=== PATIENT | male | born 1965 | race Caucasian/White ===

== ENCOUNTER 2019-05-30 18:04 | Observation (INO) ==
[2019-05-30] MEDS ORDERED: Isovue-370 500 ML BOTTLE IVP ONE (18:16)
--- NOTE | 2019-05-30 18:19 | Emergency Department Note ---
Disposition Clinical Impression: Elevated troponin Chest pain Qualifiers: Chest pain type: unspecified Qualified Code(s): R07.9 - Chest pain, unspecified Disposition: Admitted As Inpatient Referrals: Chace Rees MD [Primary Care Provider] - Time of Disposition: 21:08 Chest Pain HPI - General Stated Complaint: CP Time Seen by Provider: 05/30/19 18:05 Source: patient Mode of arrival: private vehicle Limitations: no limitations Vital Signs Reviewed: Yes Nursing Notes Reviewed: Yes - History of Present Illness HPI Narrative: Patient is a 53-year-old male with a past medical history including hypertension, hyperlipidemia, coronary artery disease status post approximately 11 myocardial infarctions in 19 cardiac stent placements, on Dilantin, history of DVT and pulmonary embolism, presenting with a chief complaint of chest pain that started at 1 PM. The patient states he was sitting at rest and suddenly developed substernal chest pain that was sharp and radiated to the right side of his jaw that worsens when he takes a deep breath and with physical exertion. He also complains of some shortness of breath but no nausea or vomiting. He states he was also sweating. He states this is similar to a prior STEMI that he has had in the past. He was seen at [facility] at 3 PM and was noted to have an elevated blood pressure of 175 systolic. They told him to go to the emergency department. He went to [facility] and states he waited 45 minutes without any lab work or intervention done so he came here for further evaluation. The patient states the chest pain did subside after nitroglycerin. He states though the chest pain returned after walking into our emergency department. - Related Data Home Medications Medication Instructions Recorded Confirmed Unable To Obtain [Unable to Obtain] 05/30/19 05/30/19 Allergies Allergy/AdvReac Type Severity Reaction Status Date / Time Amoxicillin Allergy Difficulty Verified 05/30/19 19:16 Breathing All systems ED: reviewed and negative except as stated. Review of Systems: As Per HPI Constitutional: Denies: fever, chills Cardiovascular: Reports: chest pain. Denies: palpitations Respiratory: Reports: dyspnea. Denies: cough Gastrointestinal: Denies: abdominal pain, nausea, vomiting Musculoskeletal: Denies: back pain Neurological: Denies: headache, weakness Chest Pain PMH - Past Medical History Medical history: Reports: CHF, COPD, DVT, hyperlipidemia, hypertension, myocardial infarction, pulmonary embolus, syncope Psychiatric history: Reports: no psych history - Social History Smoking Status: Current every day smoker Alcohol use: Reports: none Drug use: Reports: none Physical Exam - General Limitations: no limitations General appearance: alert, in no apparent distress - Head Head exam: atraumatic, normocephalic - Eye Eye exam: Present: normal appearance, EOMI - ENT ENT exam: normal exam, normal oropharynx - Neck Neck exam: Present: normal inspection, trachea midline - Chest Chest inspection: Present: normal inspection, symmetric chest wall rise - Respiratory Respiratory exam: Present: normal lung sounds bilaterally. Absent: respiratory distress, wheezes - Cardiovascular Cardiovascular exam: Present: regular rate, normal rhythm, normal heart sounds, other (Bilateral radial and dorsalis pedis pulses are equal and palpable) - Abdominal Exam Abdominal exam: Present: soft, Non-Tender. Absent: distention, guarding - Extremities Exam Extremities exam: Present: normal capillary refill. Absent: pedal edema, calf tenderness - Neurological Exam Neurological exam: Present: alert, oriented X3 - Psychiatric Psychiatric exam: Present: normal affect, normal mood - Skin Skin exam: Present: warm, dry, intact, normal color Course Vital Signs Temperature 98.6 F 05/30/19 18:15 Pulse Rate 478 05/30/19 18:15 Respiratory Rate 18 05/30/19 18:15 Blood Pressure 116/85 05/30/19 18:15 O2 Sat by Pulse Oximetry 97 05/30/19 18:15 Temperature 98.2 F 05/30/19 20:25 Pulse Rate 86 05/30/19 20:25 Respiratory Rate 20 05/30/19 20:25 Blood Pressure 123/78 05/30/19 20:25 O2 Sat by Pulse Oximetry 98 05/30/19 20:25 Oxygen Delivery Oxygen Delivery Room Air Chest Pain - MDM Narrative Medical decision making narrative: Patient has significant cardiac history including multiple stent placements on Brilinta, he also has history of DVT and pulmonary embolism. We will obtain cardiac workup. Initial EKG shows no acute ischemic changes and is unchanged from prior. We will also obtain CTA chest to evaluate for pulmonary embolism. Patient will require admission. He does state he has taken 7 nitroglycerin today. Aspirin and morphine will be given. 19:44 Patient was reevaluated. The vitals remain stable and the patient states he is chest pain free after having morphine. CTA pending at this time. He has an elevated troponin of 0.04. 20:50 CTA shows no pulmonary embolism. Patient states his chest pain is slowly coming back and feels tight. EKG will be repeated. Hospitalist for admission. 21:05 Repeat EKG was obtained and is unchanged from prior. Discussed with admitting hospitalist who accepts admission. - Medical Records Medical records reviewed: Yes I reviewed the patient's medical records. - Lab Data Lab results reviewed: Yes I reviewed the patient's lab results. Result diagrams: 05/30/19 18:24 05/30/19 18:24 Lab Results 05/30/19 05/30/19 05/30/19 Range/Units 18:24 18:24 18:24 WBC 10.0 (4.3-11.1) K/mcL RBC 5.51 H (4.19-5.50) M/mcL Hgb 16.2 (12.9-16.9) g/dL Hct 48.8 (37.5-50.1) % MCV 88.6 (83.0-100.0) fL MCH 29.4 (28.0-33.3) pg MCHC 33.2 (31.6-35.5) g/dL RDW 14.3 (11.5-14.5) % Plt Count 320 (140-400) K/mcL MPV 9.2 L (9.4-12.4) fL Immature Gran % 0.2 (0-4) % Seg Neutrophils % 67.0 % Lymphocytes % 24.4 % Monocytes % 7.6 % Eosinophils % 0.1 % Basophils % 0.7 % Neutrophils # 6.7 (1.6-8.9) K/mcL Lymphocytes # 2.5 (0.6-4.6) K/mcL Monocytes # 0.8 (0.0-1.3) K/mcL Eosinophils # 0.0 (0.0-0.6) K/mcL Basophils # 0.1 (0.0-0.2) K/mcL PT 11.7 (9.4-12.1) Seconds INR 1.0 APTT 33.4 (26.0-36.0) Seconds Sodium (136-145) mEq/L Potassium (3.5-5.1) mEq/L Chloride (98-107) mEq/L Carbon Dioxide (23-29) mEq/L BUN (6-20) mg/dL Creatinine (0.70-1.30) mg/dL Est GFR ( Amer) (> 60) Est GFR (Non-Af Amer) (> 60) BUN/Creatinine Ratio (6-26) Glucose (70-105) mg/dL Calculated Osmolality (280-300) Calcium (8.6-10.3) mg/dL Troponin I (< 0.04) ng/mL B-Natriuretic Peptide 30 (Less than 100) pg/mL 05/30/19 Range/Units 18:24 WBC (4.3-11.1) K/mcL RBC (4.19-5.50) M/mcL Hgb (12.9-16.9) g/dL Hct (37.5-50.1) % MCV (83.0-100.0) fL MCH (28.0-33.3) pg MCHC (31.6-35.5) g/dL RDW (11.5-14.5) % Plt Count (140-400) K/mcL MPV (9.4-12.4) fL Immature Gran % (0-4) % Seg Neutrophils % % Lymphocytes % % Monocytes % % Eosinophils % % Basophils % % Neutrophils # (1.6-8.9) K/mcL Lymphocytes # (0.6-4.6) K/mcL Monocytes # (0.0-1.3) K/mcL Eosinophils # (0.0-0.6) K/mcL Basophils # (0.0-0.2) K/mcL PT (9.4-12.1) Seconds INR APTT (26.0-36.0) Seconds Sodium 139 (136-145) mEq/L Potassium 3.7 (3.5-5.1) mEq/L Chloride 104 (98-107) mEq/L Carbon Dioxide 26 (23-29) mEq/L BUN 6 (6-20) mg/dL Creatinine 1.04 (0.70-1.30) mg/dL Est GFR ( Amer) > 60 (> 60) Est GFR (Non-Af Amer) > 60 (> 60) BUN/Creatinine Ratio 6 (6-26) Glucose 109 H (70-105) mg/dL Calculated Osmolality 286 (280-300) Calcium 9.8 (8.6-10.3) mg/dL Troponin I 0.04 H* (< 0.04) ng/mL B-Natriuretic Peptide (Less than 100) pg/mL - Radiology Data Radiology results reviewed: Yes I reviewed the patient's radiology results. Chest X-Ray 05/30/19 18:06 IMPRESSION: 1. No radiographic finding to account for patient's chest pain. D/ / Charles Hernandez MD / Charles Hernandez MD Interpreting Provider: Charles Hernandez MD Chest X-Ray 05/30/19 18:06 IMPRESSION: 1. No radiographic finding to account for patient's chest pain. D/ / Charles Hernandez MD / Charles Hernandez MD Interpreting Provider: Charles Hernandez MD Chest CTA 05/30/19 18:16 IMPRESSION: No gross findings of pulmonary embolism. 4 mm right middle lobe noncalcified pulmonary nodule, for which follow-up recommendations are as below. Emphysema. RECOMMENDATIONS: Fleischner Society guidelines for follow-up and management of incidentally detected pulmonary nodules: Single Solid Nodule: Nodule size less than 6 mm In a low-risk patient, no routine follow-up. In a high-risk patient, optional CT at 12 months. Nodule size equals 6-8 mm In a low-risk patient, CT at 6-12 months, then consider CT at 18-24 months. In a high-risk patient, CT at 6-12 months, then CT at 18-24 months. Nodule size greater than 8 mm In a low-risk patient, consider CT at 3 months, PET/CT, or tissue sampling. In a high-risk patient, consider CT at 3 months, PET/CT, or tissue sampling. Multiple Solid Nodules: Nodule size less than 6 mm In a low-risk patient, no routine follow-up. In a high-risk patient, optional CT at 12 months. Nodule size equals 6-8 mm In a low-risk patient, CT at 3-6 months, then consider CT at 18-24 months. In a high-risk patient, CT at 3-6 months, then CT at 18-24 months. Nodule size greater than 8 mm In a low-risk patient, CT at 3-6 months, then consider CT at 18-24 months. In a high-risk patient, CT at 3-6 months, then CT at 18-24 months. - Low risk patients include individuals with minimal or absent history of smoking and other known risk factors. - High risk patients include individuals with a history or smoking or known risk factors. Radiology 2017 http://pubs.rsna.org/doi/full/10.1148/radiol.[email or web address] D/ / Rodriguez Sahu MD / Rodriguez Sahu MD Interpreting Provider: Rodriguez Sahu MD - EKG Data EKG attestation: Yes I reviewed and interpreted this EKG. EKG results narrative: EKG obtained at 1809 shows sinus rhythm with heart rate 78, LA interval 151, QRS duration 95, QTC 417, no ST elevation, no ST depression, T-wave flattening in aVL, compared to old EKG on 02/16/2019 which is new flattened T waves in aVL. Repeat EKG was obtained at 2053 shows sinus rhythm with heart rate 82, P LA interval 156, QRS duration 95, QTC 462, no ST elevation, no ST depression, no changes from prior EKG at 1810. Attestation Statement - Attestation Attestation: Andrés Starr D.O., examined this patient and my medical decision-making was reviewed with the Resident Physician. I agree with the documented findings, disposition and treatment plan as described except to the extent set forth below.
[2019-05-30] MEDS ORDERED: Nitroglycerin 0.4 MG TAB.SUBL SL PRN ×2 (18:23→21:47)
[2019-05-30 18:44] LABS: Basophils # 0.1 K/mcL (0.0-0.2); Basophils % 0.7 %; Eosinophils % 0.1 %; Hematocrit 48.8 % (37.5-50.1); Hemoglobin 16.2 g/dL (12.9-16.9); Immature Granulocytes % 0.2 % (0-4); Lymphocytes # 2.5 K/mcL (0.6-4.6); Lymphocytes % 24.4 %; Mean Corpuscular HGB Conc 33.2 g/dL (31.6-35.5); Mean Corpuscular Hemoglobin 29.4 pg (28.0-33.3); Mean Corpuscular Volume 88.6 fL (83.0-100.0); Mean Platelet Volume 9.2 fL (9.4-12.4); Monocytes # 0.8 K/mcL (0.0-1.3); Monocytes % 7.6 %; Neutrophils # 6.7 K/mcL (1.6-8.9); Platelet Count 320 K/mcL (140-400); Red Blood Count 5.51 M/mcL (4.19-5.50); Red Cell Distribution Width 14.3 % (11.5-14.5)
[2019-05-30] MEDS ORDERED: Morphine Sulfate 2 MG/ML SYRINGE IVP ONE (18:45)
[2019-05-30 18:50] LABS: Prothrombin Time 11.7 Seconds (9.4-12.1)
[2019-05-30 18:53] LABS: Activated Partial Thrombo Time 33.4 Seconds (26.0-36.0)
[2019-05-30 19:02] LABS: BUN/Creatinine Ratio 6 (6-26); Blood Urea Nitrogen 6 mg/dL (6-20); Calcium 9.8 mg/dL (8.6-10.3); Carbon Dioxide 26 mEq/L (23-29); Chloride 104 mEq/L (98-107); Glucose 109 mg/dL (70-105); Osmolality,Calculated 286 (280-300); Potassium 3.7 mEq/L (3.5-5.1); Sodium 139 mEq/L (136-145); eGFR For African Americans > 60 (> 60); eGFR For Non-African Americans > 60 (> 60)
[2019-05-30 19:13] LABS: Troponin I 0.04 ng/mL (< 0.04)
--- NOTE | 2019-05-30 19:30 | Emergency Department Note ---
Disposition Clinical Impression: Elevated troponin, Pulmonary nodule Chest pain Qualifiers: Chest pain type: unspecified Qualified Code(s): R07.9 - Chest pain, unspecified Disposition: Admitted As Inpatient Referrals: Chace Rees MD [Primary Care Provider] - Time of Disposition: 21:23 General Adult HPI - General Chief complaint: ED Chest Pain Stated complaint: CP Time Seen by Provider: 05/30/19 18:05 Source: patient Mode of arrival: private vehicle Limitations: no limitations - History of Present Illness Pain Scale: 9 - Related Data Home Medications Medication Instructions Recorded Confirmed Unable To Obtain [Unable to Obtain] 05/30/19 05/30/19 Allergies Allergy/AdvReac Type Severity Reaction Status Date / Time Amoxicillin Allergy Difficulty Verified 05/30/19 19:16 Breathing Constitutional: Denies: fever, chills Cardiovascular: Reports: chest pain. Denies: palpitations Respiratory: Reports: dyspnea. Denies: cough Gastrointestinal: Denies: abdominal pain, nausea, vomiting Musculoskeletal: Denies: back pain Neurological: Denies: headache, weakness Past Medical History - Past Medical History Medical history: Reports: CHF, COPD, DVT, hyperlipidemia, hypertension, myocardial infarction, pulmonary embolus, syncope Psychiatric history: Reports: no psych history - Social History Smoking Status: Current every day smoker Alcohol use: Reports: none Drug use: Reports: none Physical Exam - General Limitations: no limitations General appearance: alert, in no apparent distress Course Vital Signs Temperature 98.6 F 05/30/19 18:15 Pulse Rate 478 05/30/19 18:15 Respiratory Rate 18 05/30/19 18:15 Blood Pressure 116/85 05/30/19 18:15 O2 Sat by Pulse Oximetry 97 05/30/19 18:15 Temperature 98.2 F 05/30/19 20:25 Pulse Rate 86 05/30/19 20:25 Respiratory Rate 20 05/30/19 20:25 Blood Pressure 123/78 05/30/19 20:25 O2 Sat by Pulse Oximetry 98 05/30/19 20:25 Oxygen Delivery Oxygen Delivery Room Air Medical Decision Making - Lab Data Lab results reviewed: Yes I reviewed the patient's lab results. Result diagrams: 05/30/19 18:24 05/30/19 18:24 Lab Results 05/30/19 05/30/19 05/30/19 Range/Units 18:24 18:24 18:24 WBC 10.0 (4.3-11.1) K/mcL RBC 5.51 H (4.19-5.50) M/mcL Hgb 16.2 (12.9-16.9) g/dL Hct 48.8 (37.5-50.1) % MCV 88.6 (83.0-100.0) fL MCH 29.4 (28.0-33.3) pg MCHC 33.2 (31.6-35.5) g/dL RDW 14.3 (11.5-14.5) % Plt Count 320 (140-400) K/mcL MPV 9.2 L (9.4-12.4) fL Immature Gran % 0.2 (0-4) % Seg Neutrophils % 67.0 % Lymphocytes % 24.4 % Monocytes % 7.6 % Eosinophils % 0.1 % Basophils % 0.7 % Neutrophils # 6.7 (1.6-8.9) K/mcL Lymphocytes # 2.5 (0.6-4.6) K/mcL Monocytes # 0.8 (0.0-1.3) K/mcL Eosinophils # 0.0 (0.0-0.6) K/mcL Basophils # 0.1 (0.0-0.2) K/mcL PT 11.7 (9.4-12.1) Seconds INR 1.0 APTT 33.4 (26.0-36.0) Seconds Sodium (136-145) mEq/L Potassium (3.5-5.1) mEq/L Chloride (98-107) mEq/L Carbon Dioxide (23-29) mEq/L BUN (6-20) mg/dL Creatinine (0.70-1.30) mg/dL Est GFR ( Amer) (> 60) Est GFR (Non-Af Amer) (> 60) BUN/Creatinine Ratio (6-26) Glucose (70-105) mg/dL Calculated Osmolality (280-300) Calcium (8.6-10.3) mg/dL Troponin I (< 0.04) ng/mL B-Natriuretic Peptide 30 (Less than 100) pg/mL 05/30/19 Range/Units 18:24 WBC (4.3-11.1) K/mcL RBC (4.19-5.50) M/mcL Hgb (12.9-16.9) g/dL Hct (37.5-50.1) % MCV (83.0-100.0) fL MCH (28.0-33.3) pg MCHC (31.6-35.5) g/dL RDW (11.5-14.5) % Plt Count (140-400) K/mcL MPV (9.4-12.4) fL Immature Gran % (0-4) % Seg Neutrophils % % Lymphocytes % % Monocytes % % Eosinophils % % Basophils % % Neutrophils # (1.6-8.9) K/mcL Lymphocytes # (0.6-4.6) K/mcL Monocytes # (0.0-1.3) K/mcL Eosinophils # (0.0-0.6) K/mcL Basophils # (0.0-0.2) K/mcL PT (9.4-12.1) Seconds INR APTT (26.0-36.0) Seconds Sodium 139 (136-145) mEq/L Potassium 3.7 (3.5-5.1) mEq/L Chloride 104 (98-107) mEq/L Carbon Dioxide 26 (23-29) mEq/L BUN 6 (6-20) mg/dL Creatinine 1.04 (0.70-1.30) mg/dL Est GFR ( Amer) > 60 (> 60) Est GFR (Non-Af Amer) > 60 (> 60) BUN/Creatinine Ratio 6 (6-26) Glucose 109 H (70-105) mg/dL Calculated Osmolality 286 (280-300) Calcium 9.8 (8.6-10.3) mg/dL Troponin I 0.04 H* (< 0.04) ng/mL B-Natriuretic Peptide (Less than 100) pg/mL - Radiology Data Radiology results reviewed: Yes I reviewed the patient's radiology results. Chest X-Ray 05/30/19 18:06 IMPRESSION: 1. No radiographic finding to account for patient's chest pain. D/ / Charles Hernandez MD / Charles Hernandez MD Interpreting Provider: Charles Hernandez MD Chest CTA 05/30/19 18:16 IMPRESSION: No gross findings of pulmonary embolism. 4 mm right middle lobe noncalcified pulmonary nodule, for which follow-up recommendations are as below. Emphysema. RECOMMENDATIONS: Fleischner Society guidelines for follow-up and management of incidentally detected pulmonary nodules: Single Solid Nodule: Nodule size less than 6 mm In a low-risk patient, no routine follow-up. In a high-risk patient, optional CT at 12 months. Nodule size equals 6-8 mm In a low-risk patient, CT at 6-12 months, then consider CT at 18-24 months. In a high-risk patient, CT at 6-12 months, then CT at 18-24 months. Nodule size greater than 8 mm In a low-risk patient, consider CT at 3 months, PET/CT, or tissue sampling. In a high-risk patient, consider CT at 3 months, PET/CT, or tissue sampling. Multiple Solid Nodules: Nodule size less than 6 mm In a low-risk patient, no routine follow-up. In a high-risk patient, optional CT at 12 months. Nodule size equals 6-8 mm In a low-risk patient, CT at 3-6 months, then consider CT at 18-24 months. In a high-risk patient, CT at 3-6 months, then CT at 18-24 months. Nodule size greater than 8 mm In a low-risk patient, CT at 3-6 months, then consider CT at 18-24 months. In a high-risk patient, CT at 3-6 months, then CT at 18-24 months. - Low risk patients include individuals with minimal or absent history of smoking and other known risk factors. - High risk patients include individuals with a history or smoking or known risk factors. Radiology 2017 http://pubs.rsna.org/doi/full/10.1148/radiol.[email or web address] D/ / Rodriguez Sahu MD / Rodriguez Sahu MD Interpreting Provider: Rodriguez Sahu MD Attestation Statement - Attestation Attestation: Andrés Starr D.O., examined this patient and my medical decision-making was reviewed with the Resident Physician. I agree with the documented findings, di sposition and treatment plan as described except to the extent set forth below. This is a 53-year-old male with a history of CAD with numerous stents, prior PE on aspirin and Brilinta currently who presents with a complaint of chest pain. Pain began this afternoon at rest. [place] diaphoretic and short of breath with it. He tells me he took 7 nitroglycerin in total by the time of arrival. Reports his blood pressure is always on the lower side. No recent illnesses. No other complaints. General: Alert, no acute distress HENT: Normocephalic, Atraumatic Neck: No JVD Cardiovascular: Regular rate and rhythm. No appreciable murmurs Respiratory: Lungs CTAB. No wheezing/rhonchi Abdominal: Soft, non tender. No peritoneal findings Extremities: No peripheral edema Neuro: Alert, Mentating appropriately, No focal deficits Skin: Warm, Dry Plan: Significant coronary artery disease history. States he last had a left heart catheterization in October with a stent placed then. Plan for EKG, chest x-ray and labs and troponin. Anticipate admission. ED Procedure Note: EKG interpretation - I agree with the resident physician's documentation and interpretation of the patient's EKG. Sinus rhythm with rate of 70 beats or minute. Left axis deviation. Normal intervals. No gross ST elevations or depressions. No acute ischemic findings. Imaging labs reviewed. CT negative for PE. He does have an elevated troponin of 0.04. Repeat EKG was obtained given recurrence of his pain without any new changes. Case was discussed with the hospitalist who accepts for admission.
[2019-05-30] MEDS: Aspirin 325 MG TABLET PO ONE (21:27)
[2019-05-30] MEDS ORDERED: Naloxone 0.4 MG/ML INJ IVP PRN (21:42)
[2019-05-30] MEDS ORDERED: Ondansetron 4 MG/2 ML VIAL IVP PRN (21:47)
[2019-05-30] MEDS: *HR* Heparin 5,000 UNIT/ML VIAL SQ SCH (22:08)
[2019-05-31 01:07] LABS: Hematocrit 47.2 % (37.5-50.1); Hemoglobin 15.5 g/dL (12.9-16.9); Mean Corpuscular HGB Conc 32.8 g/dL (31.6-35.5); Mean Corpuscular Hemoglobin 29.2 pg (28.0-33.3); Mean Corpuscular Volume 89.1 fL (83.0-100.0); Mean Platelet Volume 9.4 fL (9.4-12.4); Platelet Count 285 K/mcL (140-400); Red Cell Distribution Width 14.4 % (11.5-14.5)
[2019-05-31 01:26] LABS: BUN/Creatinine Ratio 6 (6-26); Blood Urea Nitrogen 6 mg/dL (6-20); Calcium 9.1 mg/dL (8.6-10.3); Carbon Dioxide 25 mEq/L (23-29); Chloride 106 mEq/L (98-107); Chol/HDL Ratio 3.8 (0-4.9); Cholesterol 121 mg/dL (< 200); Glucose 116 mg/dL (70-105); HDL Cholesterol 32 mg/dL (40-59); LDL Cholesterol,Calculated 65 mg/dL (0-99); Magnesium 1.9 mg/dL (1.6-2.6); Osmolality,Calculated 285 (280-300); Potassium 3.7 mEq/L (3.5-5.1); Sodium 138 mEq/L (136-145); Triglycerides 121 mg/dL (< 150); eGFR For African Americans > 60 (> 60); eGFR For Non-African Americans > 60 (> 60)
[2019-05-31] MEDS: Morphine Sulfate 2 MG/ML SYRINGE IVP PRN ×3 (03:12→12:36)
--- NOTE | 2019-05-31 04:54 | Internal Med History&Physical ---
Date of Encounter: 05/31/19 Time of Encounter: 04:54 Internal Medicine - H&P: HPI Chief complaint: Chest pain History of present illness: Mr. Verduzco is a 53 year old male with an extensive past medical history of coronary artery disease status post reported multiple MIs, 19 cardiac stents, CABG in addition to hypertension, hyperlipidemia history of DVT and PE, CHF and COPD who presented to the ED with chief complaint of chest pain. Patient reports that around 1 PM this afternoon while the patient was seated he began to have sudden onset substernal chest pain described as tightness that was nonradiating and reported to be aggravated with exertion and partially relieved with rest. Symptoms were associated with profuse sweating, nausea and chills and some shortness of breath. Patient states that symptoms were similar to previous [place]. Patient initially went to his mental health practitioner for which he had a previous appointment and was found to have an elevated blood pressure with a systolic in the 170s. Patient was subsequently referred to the ED. Carlo hardy reports to have taken sublingual nitroglycerin which did not help. He was given an additional sublingual nitroglycerin here in the ED which again did not improve his symptoms. Patient was given 4 mg of morphine after which his chest pain was noted to improve. Patient otherwise reports no recent illness, fever, chills, cough, abdominal pain, lower extremity edema, constipation or diarrhea. Patient admits to smoking approximately 4-5 cigarettes a day. Otherwise reports a [id number] smoking history Denies any alcohol or drug use. Family history noncontributory. Patient reports the last stress test in September of this year which she states was abnormal. On arrival, patient's vitals were stable. Initial troponin was mildly elevated at 0.04. Remainder of laboratory workup was unremarkable. EKG was obtained which showed sinus rhythm in the absence of any ST or T-wave changes concerning for ischemia. A CTA was obtained which was negative for PE. On my assessment patient was still complaining of 5 out of 10 chest pain and requesting morphine. Past Med Surg Social Fam HX - Past Medical History Medical history: asthma, CHF, COPD, DVT, hyperlipidemia, hypertension, myocardial infarction, pulmonary embolus, syncope Additional medical history: neuropathy, emphysema, colon polyps Psychiatric history: anxiety, depression - Past Surgical History Additional surgical history: triple bypass - Social History Smoking Status: Current every day smoker Alcohol use: none Drug use: none Internal Medicine - H&P: Meds Albuterol Sulfate [Ventolin Hfa] 2 puff IH Q4H PRN 05/30/19 [History] Amitriptyline [Elavil] 25 mg PO HS 05/30/19 [History] Aspirin [Lo-Dose Aspirin EC] 81 mg PO DAILY 05/30/19 [History] Diclofenac Sodium [Diclofono] 1 appl TP BID PRN 05/30/19 [History] Evolocumab [Repatha Sureclick] 140 mg SQ Q2W 05/30/19 [History] FLUoxetine HCl [Prozac] 60 mg PO DAILY 05/30/19 [History] Famotidine [Pepcid] 20 mg PO BID 05/30/19 [History] Fluticasone Propionate Nasal [Flonase] 1 spr NS DAILY PRN 05/30/19 [History] Folic Acid 1 mg PO DAILY 05/30/19 [History] Furosemide [Lasix] 40 mg PO DAILY PRN 05/30/19 [History] Gabapentin [Neurontin] 400 mg PO TID 05/30/19 [History] Ipratropium/Albuterol Neb [Duoneb] 3 ml IH Q6HR PRN 05/30/19 [History] Isosorbide DInitrate [Isosorbide Dinitrate] 30 mg PO BID 05/30/19 [History] Lisinopril [Zestril] 5 mg PO DAILY 05/30/19 [History] Metoprolol Succinate [Toprol Xl] 25 mg PO DAILY 05/30/19 [History] Nitroglycerin [Nitrostat] 0.4 mg SL Q5M PRN MDD 3 tabs/15mins 05/30/19 [History] Ondansetron ODT [Zofran ODT] 4 mg PO TID PRN 05/30/19 [History] Rosuvastatin [Crestor] 40 mg PO HS 05/30/19 [History] Ticagrelor [Brilinta] 90 mg PO BID 05/30/19 [History] Tiotropium [place] [Spiriva Respimat] 2 spr IH DAILY 05/30/19 [History] clonazePAM [Clonazepam] 0.5 tab PO BID 05/30/19 [History] hydrOXYzine HCl [Hydroxyzine HCl] 50 mg PO BID PRN 05/30/19 [History] Nicotine Patch [Nicoderm] 14 mg TD DAILY #30 patch.td24 05/31/19 [Rx] Ranolazine [Ranexa] 1,000 mg PO BID #60 tab.er.12h 05/31/19 [Rx] Allergy/AdvReac Type Severity Reaction Status Date / Time Amoxicillin Allergy Difficulty Verified 05/30/19 22:35 Breathing All Systems PM: A 10-system review of systems was performed and is negative for pertinent findings except as documented above in the HPI. - Constitutional Constitutional: no chills, no fever(s), no night sweats - EENT Eyes: no change in vision, no discharge, no pain, no photophobia Ears: no ear discharge, no ear pain, no tinnitus Nose, mouth and throat: no dysphagia, no nasal discharge, no neck pain, no sore throat - Cardiovascular Cardiovascular ROS IM: no chest pain, no diaphoresis, no dyspnea, no lightheadedness, no palpitations, no syncope - Respiratory Respiratory: no cough, no dyspnea, no wheezing, no excessive phlegm production - Gastrointestinal Gastrointestinal: no abdominal pain, no diarrhea, no hematemesis, no hematochezia, no melena, no nausea, no vomiting - Musculoskeletal Musculoskeletal ROS IM: no numbness, no tingling - Integumentary Integumentary IM: no rash, no unusual bruising - Neurological Neurological ROS: no confusion, no convulsions, no focal weakness, no numbness, no tingling, no tremor(s) - Hematologic/Lymphatic Hematologic/Lymphatic: no easy bruising - Constitutional Vitals: Temp Pulse Resp BP Pulse Ox 97.6 F 56 16 117/70 97 05/31/19 03:59 05/31/19 03:59 05/31/19 03:59 05/31/19 03:59 05/31/19 03:59 Exam: General: Alert and oriented Skin:Normal color, no rash, no lesions. HEENT:EOM, pupils equal, round and reactive. Cardiovascular:Normal S1 & S2, no rubs, murmurs or gallops. No JVD. Pulse regular. Lungs:Normal breath sounds, no wheezes or crackles. Abdomen:Soft, non-tender, no rigidity. Extremities:No deformity, no edema or tenderness, no joint swelling or clubbing. Neurological:Normal cognition and motor skills. Pulses:Carotid and radial pulses normal +2. Rest of the physical exam is non contributory Internal Med - H&P Results - Labs CBC & Chem 7: 05/31/19 06:27 05/31/19 06:27 Labs: Short CBC 05/30/19 05/31/19 Range/Units 18:24 00:26 WBC 10.0 12.0 H (4.3-11.1) K/mcL Hgb 16.2 15.5 (12.9-16.9) g/dL Hct 48.8 47.2 (37.5-50.1) % Plt Count 320 285 (140-400) K/mcL Neutrophils # 6.7 (1.6-8.9) K/mcL BMP 05/30/19 05/31/19 18:24 00:26 Sodium 139 138 Potassium 3.7 3.7 Chloride 104 106 Carbon Dioxide 26 25 BUN 6 6 Creatinine 1.04 0.99 Glucose 109 H 116 H Calcium 9.8 9.1 Cardiac Enzymes 05/30/19 05/31/19 Range/Units 18:24 00:26 Troponin I 0.04 H* 0.03 (< 0.04) ng/mL - Impressions ITS Impressions Chest X-Ray 05/30/19 18:06 IMPRESSION: 1. No radiographic finding to account for patient's chest pain. D/ / Charles Hernandez MD / Charles Hernandez MD Interpreting Provider: Charles Hernandez MD Chest CTA 05/30/19 18:16 IMPRESSION: No gross findings of pulmonary embolism. 4 mm right middle lobe noncalcified pulmonary nodule, for which follow-up recommendations are as below. Emphysema. RECOMMENDATIONS: Fleischner Society guidelines for follow-up and management of incidentally detected pulmonary nodules: Single Solid Nodule: Nodule size less than 6 mm In a low-risk patient, no routine follow-up. In a high-risk patient, optional CT at 12 months. Nodule size equals 6-8 mm In a low-risk patient, CT at 6-12 months, then consider CT at 18-24 months. In a high-risk patient, CT at 6-12 months, then CT at 18-24 months. Nodule size greater than 8 mm In a low-risk patient, consider CT at 3 months, PET/CT, or tissue sampling. In a high-risk patient, consider CT at 3 months, PET/CT, or tissue sampling. Multiple Solid Nodules: Nodule size less than 6 mm In a low-risk patient, no routine follow-up. In a high-risk patient, optional CT at 12 months. Nodule size equals 6-8 mm In a low-risk patient, CT at 3-6 months, then consider CT at 18-24 months. In a high-risk patient, CT at 3-6 months, then CT at 18-24 months. Nodule size greater than 8 mm In a low-risk patient, CT at 3-6 months, then consider CT at 18-24 months. In a high-risk patient, CT at 3-6 months, then CT at 18-24 months. - Low risk patients include individuals with minimal or absent history of smoking and other known risk factors. - High risk patients include individuals with a history or smoking or known risk factors. Radiology 2017 http://pubs.rsna.org/doi/full/10.1148/radiol.7807590119 D/ / Rodriguez Sahu MD / Rodriguez Sahu MD Interpreting Provider: Rodriguez Sahu MD - Assessment and Plan (1) Chest pain Status: Acute Assessment and plan: 53-year-old male with extensive cardiac history presenting with chest pain reported to be similar in presentation to previous [place]. Found to have a mildly elevated troponin of 0.04. EKG otherwise does not show any evidence of ischemic changes. CTA negative for PE. Admitted for ACS rule out. Patient otherwise currently stable. -Telemetry -Trend troponin -Echocardiogram -Given extensive cardiac history and mildly elevated troponin, will defer to cardiology for further evaluation moving forward. Qualifiers: Chest pain type: unspecified Qualified Code(s): R07.9 - Chest pain, unspecified (2) Elevated troponin Status: Acute Assessment and plan: Elevated troponin of 0.04. -We will continue to trend (3) Pulmonary nodule Status: Acute Assessment and plan: 4 mm solitary pulmonary nodule noted in the right middle lobe on CTA. Patient likely high risk given his smoking history and will likely need follow-up CT in 12 months. (4) Coronary artery disease Status: Chronic Assessment and plan: Extensive history of coronary artery disease with reported 11 stents status post CABG currently on long-acting beta colt and dual antiplatelet therapy. -Resume metoprolol succinate, rosuvastatin, DENISE inhibitor, isosorbide dinitrate Qualifiers: Coronary Disease-Associated Artery/Lesion type: unspecified vessel or lesion type [place] vs. transplanted heart: [place] heart Associated angina: with unspecified angina Qualified Code(s): I25.119 - Atherosclerotic heart disease of [place] coronary artery with unspecified angina pectoris (5) Hypertension Status: Acute Assessment and plan: Reported blood pressure of 175 systolic during outpatient visit. Patient has remained normotensive since admission. We will resume home antihypertensives. Qualifiers: Hypertension type: essential hypertension Qualified Code(s): I10 - Essential (primary) hypertension (6) COPD (chronic obstructive pulmonary disease) Status: Acute Assessment and plan: History of COPD non-O2 dependent. No evidence of exacerbation. -Resume home inhalers Qualifiers: COPD type: unspecified COPD Qualified Code(s): J44.9 - Chronic obstructive pulmonary disease, unspecified (7) Congestive heart failure Status: Acute Assessment and plan: History of congestive heart failure. No prior echocardiogram in our records. No evidence of exacerbation at this time. -We will obtain echocardiogram -Resume patient's BB, Lasix and DENISE inhibitor Qualifiers: Heart failure type: diastolic Heart failure chronicity: chronic Qualified Code(s): I50.32 - Chronic diastolic (congestive) heart failure (8) DVT prophylaxis Status: Acute Assessment and plan: Subcutaneous heparin - Time Spent With Patient Total time spent is greater than 50% in coordination of care (as documented) at patient's floor/unit and/or counseling patient:
[2019-05-31] MEDS ORDERED: Ranolazine 500 MG TAB.ER.12H PO SCH ×2 (06:00→21:00)
[2019-05-31] MEDS: *HR* Heparin 5,000 UNIT/ML VIAL SQ SCH ×2 (06:15→15:11)
[2019-05-31 06:23] VITALS: BP 122/75
[2019-05-31 07:33] LABS: BUN/Creatinine Ratio 7 (6-26); Blood Urea Nitrogen 7 mg/dL (6-20); Calcium 9.1 mg/dL (8.6-10.3); Carbon Dioxide 24 mEq/L (23-29); Chloride 106 mEq/L (98-107); Glucose 97 mg/dL (70-105); Osmolality,Calculated 280 (280-300); Potassium 3.6 mEq/L (3.5-5.1); Sodium 136 mEq/L (136-145); eGFR For African Americans > 60 (> 60); eGFR For Non-African Americans > 60 (> 60)
[2019-05-31 07:34] LABS: Basophils # 0.1 K/mcL (0.0-0.2); Basophils % 0.8 %; Eosinophils % 0.1 %; Hematocrit 45.5 % (37.5-50.1); Hemoglobin 15.1 g/dL (12.9-16.9); Immature Granulocytes % 0.2 % (0-4); Lymphocytes # 2.9 K/mcL (0.6-4.6); Lymphocytes % 34.5 %; Mean Corpuscular HGB Conc 33.2 g/dL (31.6-35.5); Mean Corpuscular Hemoglobin 28.9 pg (28.0-33.3); Mean Corpuscular Volume 87.2 fL (83.0-100.0); Mean Platelet Volume 9.4 fL (9.4-12.4); Monocytes # 0.7 K/mcL (0.0-1.3); Monocytes % 8.8 %; Neutrophils # 4.6 K/mcL (1.6-8.9); Platelet Count 282 K/mcL (140-400); Red Blood Count 5.22 M/mcL (4.19-5.50); Red Cell Distribution Width 14.4 % (11.5-14.5); Segmented Neutrophils % 55.6 %; White Blood Count 8.3 K/mcL (4.3-11.1)
[2019-05-31] MEDS ORDERED: Metoprolol XL (24 HR) Succ 25 MG TAB.ER.24H PO SCH (09:00)
[2019-05-31] MEDS ORDERED: *HR* Ticagrelor 90 MG TABLET PO SCH (09:00)
[2019-05-31] MEDS ORDERED: Aspirin Enteric Coated 81 MG Tablet PO SCH (09:00)
[2019-05-31] MEDS ORDERED: Tiotropium 18 MCG inhalation IH SCH (09:00)
--- NOTE | 2019-05-31 09:24 | Cardiology Consult Note ---
Date of Encounter: 05/31/19 Time of Encounter: 08:30 Assessment and Plan (1) Chest pain Current Visit: Yes Status: Acute Per cardiology: -Admits with chest pain, similar to previous angina. -Known history of CAD, reports [facility] 10/2018 with stenting. -Troponin 0.04, then negative x2. -Denies current chest pain. -No acute ischemic ECG changes noted. -No previous cardiology records to review at [facility]. -ON asa, brilinta, statin, BB, nitrate, and ranexa. -TTE pending. -Will increase ranexa to 1000mg BID. -Will obtain records from [facility] from recent stress and subsequent LHC. -Agree with TTE. -Further recs to follow. Qualifiers: Chest pain type: unspecified Qualified Code(s): R07.9 - Chest pain, unspecified (2) Elevated troponin Current Visit: Yes Status: Acute Per cardiology: -Troponin 0.04, negative x2. -No acute ischemic ECG changes noted. -Reported chest pain on admission. -ALso reports HTN yesterday with BPs 170s systolic. -TTE pending. -Demand ischemia, no cardiac rehab consult warranted. -Continue current medical therapy. -Further recs to follow after records review and TTE. (3) Coronary artery disease Current Visit: Yes Status: Chronic Per cardiology: -Known CAD s/p [facility] 10/2018 with reported stenting. -On medical therapy as above. -Dual anti-platelet therapy uninterrupted for at least one year. -Will obtain records. Qualifiers: Coronary Disease-Associated Artery/Lesion type: unspecified vessel or lesion type [place] vs. transplanted heart: [place] heart Associated angina: with unspecified angina Qualified Code(s): I25.119 - Atherosclerotic heart disease of [place] coronary artery with unspecified angina pectoris Discussion w patient/family: The assessment and plan as outlined above was discussed with the patient. Discussed and reviewed with History of Present Illness Consult date: 05/31/19 Requesting physician: Terrell Hanks Consult reason: Chest pain Chief complaint: chest pain History of present illness: Mr. Verduzco is a 53 year old male with a relevant past medical history of CAD s/p CABG and multiple PCIs (reportedly 19 stents), [place], CHF, DVT, PE, asthma, COPD, DM, HTN, anxiety, depression, neuropathy, GERD, who presented to [facility] with complaints of chest pain. Patient states chest pain started yesterday while sitting at his house. Patient states chest pain was similar to his previous angina. Reports associated diaphoresis and shortness of breath. Patient states he had an outpatient appt yesterday that he did not want to miss. States chest pain increased while walking into his appt. Patient states that his BP at appt was 170s systolic and provider recommended he present to ER. Patient states he was given multiple doses of nitro without relief of symptoms. Patient states morphine relieves symptoms. Denies current chest pain. Patient reports stress test and LHC with stenting at [facility] 10/2018. Past Med Surg Social Fam HX - Past Medical History Attestation: Yes The following information was validated with the patient. Source: patient, old records reviewed Medical history: asthma, CHF, COPD, coronary artery disease, DVT, hyperlipidemia, hypertension, myocardial infarction, pulmonary embolus, syncope Additional medical history: neuropathy, emphysema, colon polyps Psychiatric history: anxiety, depression - Past Surgical History Additional surgical history: triple bypass - Social History Smoking Status: Current every day smoker Alcohol use: none Drug use: none Medications and Allergies Albuterol Sulfate [Ventolin Hfa] 2 puff IH Q4H PRN 05/30/19 [History] Amitriptyline [Elavil] 25 mg PO HS 05/30/19 [History] Aspirin [Lo-Dose Aspirin EC] 81 mg PO DAILY 05/30/19 [History] Diclofenac Sodium [Diclofono] 1 appl TP BID PRN 05/30/19 [History] Evolocumab [Repatha Sureclick] 140 mg SQ Q2W 05/30/19 [History] FLUoxetine HCl [PROzac] 60 mg PO DAILY 05/30/19 [History] Famotidine [Pepcid] 20 mg PO BID 05/30/19 [History] Fluticasone Propionate Nasal [Flonase] 1 spr NS DAILY PRN 05/30/19 [History] Folic Acid 1 mg PO DAILY 05/30/19 [History] Furosemide [Lasix] 40 mg PO DAILY PRN 05/30/19 [History] Gabapentin [Neurontin] 400 mg PO TID 05/30/19 [History] Ipratropium/Albuterol Neb [Duoneb] 3 ml IH Q6HR PRN 05/30/19 [History] Isosorbide DInitrate [Isosorbide Dinitrate] 30 mg PO BID 05/30/19 [History] Lisinopril [Zestril] 5 mg PO DAILY 05/30/19 [History] Metoprolol Succinate [Toprol Xl] 25 mg PO DAILY 05/30/19 [History] Nitroglycerin [Nitrostat] 0.4 mg SL Q5M PRN MDD 3 tabs/15mins 05/30/19 [History] Ondansetron ODT [Zofran ODT] 4 mg PO TID PRN 05/30/19 [History] Ranolazine [Ranolazine ER] 500 mg PO Q12H 05/30/19 [History] Rosuvastatin [Crestor] 40 mg PO HS 05/30/19 [History] Ticagrelor [Brilinta] 90 mg PO BID 05/30/19 [History] Tiotropium [place] [Spiriva Respimat] 2 spr IH DAILY 05/30/19 [History] clonazePAM [Clonazepam] 0.5 tab PO BID 05/30/19 [History] hydrOXYzine HCl [Hydroxyzine HCl] 50 mg PO BID PRN 05/30/19 [History] Allergy/AdvReac Type Severity Reaction Status Date / Time Amoxicillin Allergy Difficulty Verified 05/30/19 22:35 Breathing All Systems Review: The remainder of the systems were reviewed and are negative - Cardiovascular Cardiovascular: as per HPI, chest pain at rest, chest pain with exertion, diaphoresis, dyspnea on exertion Physical Examination Vital Signs, Last 4 Hours Temp Pulse Resp BP Pulse Ox 05/31/19 07:52 16 97 05/31/19 06:16 97.4 F L 55 16 122/75 95 General: Conversant, No Apparent Distress HEENT: Atraumatic, Normocephaly, Mucus Membranes Moist Neck: No JVD, Normal carotid pulses Cardiac: Reg Rate and Rhythm, Normal S1 and S2, No Murmur Lungs: Normal Breath Sounds, No Wheeze, Rales, Rhonchi Neuro: Alert and responsive, No focal deficits noted Abdomen: Soft, Non-Tender Skin: No rashes noted on visualized skin Musculoskeletal: No Chest Wall Tenderness Extremities: No Clubbing, No Cyanosis, No Edema, Normal Pulses Results 05/31/19 06:27 05/31/19 06:27 Lab Results 05/30/19 05/30/19 05/30/19 18:24 18:24 18:24 WBC 10.0 Hgb 16.2 Hct 48.8 Plt Count 320 INR 1.0 APTT 33.4 Sodium Potassium Chloride Carbon Dioxide BUN Creatinine Glucose Calcium Magnesium Troponin I B-Natriuretic Peptide 30 Impressions Chest X-Ray 05/30/19 18:06 IMPRESSION: 1. No radiographic finding to account for patient's chest pain. D/ / Charles Hernandez MD / Charles Hernandez MD Interpreting Provider: Charles Hernandez MD Chest CTA 05/30/19 18:16 IMPRESSION: No gross findings of pulmonary embolism. 4 mm right middle lobe noncalcified pulmonary nodule, for which follow-up recommendations are as below. Emphysema. RECOMMENDATIONS: Fleischner Society guidelines for follow-up and management of incidentally detected pulmonary nodules: Single Solid Nodule: Nodule size less than 6 mm In a low-risk patient, no routine follow-up. In a high-risk patient, optional CT at 12 months. Nodule size equals 6-8 mm In a low-risk patient, CT at 6-12 months, then consider CT at 18-24 months. In a high-risk patient, CT at 6-12 months, then CT at 18-24 months. Nodule size greater than 8 mm In a low-risk patient, consider CT at 3 months, PET/CT, or tissue sampling. In a high-risk patient, consider CT at 3 months, PET/CT, or tissue sampling. Multiple Solid Nodules: Nodule size less than 6 mm In a low-risk patient, no routine follow-up. In a high-risk patient, optional CT at 12 months. Nodule size equals 6-8 mm In a low-risk patient, CT at 3-6 months, then consider CT at 18-24 months. In a high-risk patient, CT at 3-6 months, then CT at 18-24 months. Nodule size greater than 8 mm In a low-risk patient, CT at 3-6 months, then consider CT at 18-24 months. In a high-risk patient, CT at 3-6 months, then CT at 18-24 months. - Low risk patients include individuals with minimal or absent history of smoking and other known risk factors. - High risk patients include individuals with a history or smoking or known risk factors. Radiology 2017 http://pubs.rsna.org/doi/full/10.1148/radiol.5029272246 D/ / Rodriguez Sahu MD / Rodriguez Sahu MD Interpreting Provider: Rodriguez Sahu MD Active Medications Albuterol Sulfate (Proventil Inhaler) 2 puff IH Q4H PRN PRN Reason: Shortness Of Breath Stop: 11/30/19 05:22 Aspirin (Aspirin Ec) 81 mg PO DAILY [facility] Stop: 11/30/19 09:01 Heparin Sodium (Porcine) (Heparin) 5,000 unit SQ Q8HCO [facility]; Protocol Stop: 11/29/19 22:01 Last Admin: 05/31/19 06:15 Dose: 5,000 unit Documented by: Isosorbide Dinitrate (Isordil) 30 mg PO BID [facility] Stop: 11/30/19 09:01 Lisinopril (Zestril) 5 mg PO DAILY [facility]; Protocol Stop: 11/30/19 09:01 Metoprolol Succinate (Toprol Xl) 25 mg PO DAILY [facility] Stop: 11/30/19 09:01 Morphine Sulfate (Morphine) 4 mg IVP Q3H PRN PRN Reason: Severe Pain (7-10) Stop: 11/30/19 02:42 Last Admin: 05/31/19 08:03 Dose: 4 mg Documented by: Naloxone HCl (Narcan) 0.4 mg IVP Q2MPRN PRN PRN Reason: SEE COMMENTS Stop: 11/29/19 21:43 Nitroglycerin (Nitroglycerin) 0.4 mg SL Q5MPRN PRN PRN Reason: Chest Pain Stop: 11/29/19 18:24 Nitroglycerin (Nitroglycerin) 0.4 mg SL Q5MIN PRN PRN Reason: Chest Pain Stop: 11/29/19 21:48 Ondansetron HCl (Zofran) 4 mg IVP Q6HR PRN; Protocol PRN Reason: Nausea Stop: 11/29/19 21:48 Ranolazine (Ranexa) 500 mg PO Q12H [facility] Stop: 11/30/19 06:01 Last Admin: 05/31/19 06:15 Dose: 500 mg Documented by: Rosuvastatin Calcium (Crestor) 40 mg PO HS [facility] Stop: 11/30/19 21:01 Ticagrelor (Brilinta) 90 mg PO BID [facility] Stop: 11/30/19 09:01 Tiotropium [place] (Spiriva) 18 mcg IH DAILY [facility] Stop: 11/30/19 09:01 Last Admin: 05/31/19 07:50 Dose: 18 mcg Documented by: Laboratory Tests 05/30/19 05/31/19 05/31/19 18:24 00:26 00:26 Hgb 15.5 Creatinine Troponin I 0.04 H* 0.03 05/31/19 05/31/19 00:26 06:27 Hgb Creatinine 0.99 Troponin I 0.03 - Imaging and Cardiology Chest Xray: report reviewed Echo: pending - EKG Interpretation EKG results cardiology: personally reviewed (ECG with SB, Sinus arrythmia, HR 57. PVCs noted.), other (Telemetry reviewed with average HR previous 12 hours noted to be 58, SB. PVCs, PACs noted.) Consult Discharge Plan - Plan Referrals: Chace Rees MD [Primary Care Provider] - 06/07/19 10:40 am
[2019-05-31] MEDS ORDERED: Perflutren Lipid Microsphere 1.3 ML in 0.9 % Sodium Chloride 8.7 ML IVP ONE (11:15)
--- NOTE | 2019-05-31 14:57 | Discharge Summary ---
- NOTES TO OUTPATIENT PROVIDER Notes to Outpatient Provider: Follow up with PCP in one week. Follow-up with cardiology as scheduled. Please quit smoking. Medication changes: Increased Ranexa to 1000mg PO BID Date of Encounter: 05/31/19 Time of Encounter: 14:54 - Discharge Diagnosis (1) Chest pain Priority: Primary Status: Acute Qualifiers: Chest pain type: unspecified Qualified Code(s): R07.9 - Chest pain, unspecified (2) Elevated troponin Priority: Primary Status: Acute (3) Pulmonary nodule Priority: Secondary Status: Acute (4) DVT prophylaxis Priority: Secondary Status: Acute (5) Coronary artery disease Priority: Secondary Status: Chronic Qualifiers: Coronary Disease-Associated Artery/Lesion type: unspecified vessel or lesion type [place] vs. transplanted heart: [place] heart Associated angina: with unspecified angina Qualified Code(s): I25.119 - Atherosclerotic heart disease of [place] coronary artery with unspecified angina pectoris (6) Hypertension Priority: Secondary Status: Acute Qualifiers: Hypertension type: essential hypertension Qualified Code(s): I10 - Essential (primary) hypertension (7) COPD (chronic obstructive pulmonary disease) Priority: Secondary Status: Acute Qualifiers: COPD type: unspecified COPD Qualified Code(s): J44.9 - Chronic obstructive pulmonary disease, unspecified (8) Congestive heart failure Priority: Secondary Status: Acute Qualifiers: Heart failure type: diastolic Heart failure chronicity: chronic Qualified Code(s): I50.32 - Chronic diastolic (congestive) heart failure (9) Tobacco dependence Priority: Secondary Status: Acute Hospital course: Mr. Verduzco is a 53 year old male with known past medical history of CAD s/p CABG and multiple PCIs (reportedly 19 stents), UT, CHF, DVT, PE, asthma, COPD, DM, HTN, anxiety, depression, neuropathy, GERD and chronic tobacco dependence pt presented toER with complaints of chest pain. Patient stated chest pain started yesterday while resting. Patient stated chest pain was similar to his previous angina. He did mention he had abnormal stress , followed by [facility] with PCI x 2 in Oct [address] [facility]. Here in the ER his initial trop @ 0.04 He was admitted in the hospital and placed him on surveillance system monitor. His Troponin trended down to normal. He denied any more CP. His EKG did not show any acute ischemic changes. His 2D Echo showed preserved LVEF, mild LVH, No septa / wall motion abnormalities noticed. Patient was evaluated by cardiology who increased his Ranexa to 1000 mg PO BID. We requested his [facility] report from [facility] which is still pending.. However pt do not wanted stay in the hospital , he decided to leave AMA since today is anniversary of 's passing. He wanted to go home and f.u with Cardiology as an out pt. I explained to him about the risks, with potential due to UT, however he still decided to leave AMA. So I gave him Rx for Ranexa and Nicotine patch. Made an appt with our cardiology since he wanted to f.u our cardiology here. Also recommended him to go to closest ER if he gets CP again. - Time Spent with Patient Total time spent providing and/or coordinating discharge services: - Discharge Medications Prescriptions: New Ranolazine [Ranexa] 1,000 mg PO BID #60 tab.er.12h Nicotine Patch [Nicoderm] 14 mg TD DAILY #30 patch.td24 Continued Albuterol Sulfate [Ventolin Hfa] 2 puff IH Q4H PRN PRN Reason: Shortness Of Breath Amitriptyline [Elavil] 25 mg PO HS Aspirin [Lo-Dose Aspirin EC] 81 mg PO DAILY clonazePAM [Clonazepam] 0.5 tab PO BID Diclofenac Sodium [Diclofono] 1 appl TP BID PRN PRN Reason: leg pain Evolocumab [Repatha Sureclick] 140 mg SQ Q2W Famotidine [Pepcid] 20 mg PO BID FLUoxetine HCl [Prozac] 60 mg PO DAILY Fluticasone Propionate Nasal [Flonase] 1 spr NS DAILY PRN PRN Reason: Allergy Symptoms Folic Acid 1 mg PO DAILY Furosemide [Lasix] 40 mg PO DAILY PRN PRN Reason: Edema Gabapentin [Neurontin] 400 mg PO TID hydrOXYzine HCl [Hydroxyzine HCl] 50 mg PO BID PRN PRN Reason: Anxiety Ipratropium/Albuterol Neb [Duoneb] 3 ml IH Q6HR PRN PRN Reason: Shortness Of Breath Isosorbide DInitrate [Isosorbide Dinitrate] 30 mg PO BID Lisinopril [Zestril] 5 mg PO DAILY Metoprolol Succinate [Toprol Xl] 25 mg PO DAILY Nitroglycerin [Nitrostat] 0.4 mg SL Q5M PRN MDD 3 tabs/15mins PRN Reason: Chest Pain Ondansetron ODT [Zofran ODT] 4 mg PO TID PRN PRN Reason: Nausea Rosuvastatin [Crestor] 40 mg PO HS Ticagrelor [Brilinta] 90 mg PO BID Tiotropium [place] [Spiriva Respimat] 2 spr IH DAILY Discontinued Ranolazine [Ranolazine ER] 500 mg PO Q12H Home Medications: Albuterol Sulfate [Ventolin Hfa] 2 puff IH Q4H PRN 05/30/19 [History] Amitriptyline [Elavil] 25 mg PO HS 05/30/19 [History] Aspirin [Lo-Dose Aspirin EC] 81 mg PO DAILY 05/30/19 [History] Diclofenac Sodium [Diclofono] 1 appl TP BID PRN 05/30/19 [History] Evolocumab [Repatha Sureclick] 140 mg SQ Q2W 05/30/19 [History] FLUoxetine HCl [Prozac] 60 mg PO DAILY 05/30/19 [History] Famotidine [Pepcid] 20 mg PO BID 05/30/19 [History] Fluticasone Propionate Nasal [Flonase] 1 spr NS DAILY PRN 05/30/19 [History] Folic Acid 1 mg PO DAILY 05/30/19 [History] Furosemide [Lasix] 40 mg PO DAILY PRN 05/30/19 [History] Gabapentin [Neurontin] 400 mg PO TID 05/30/19 [History] Ipratropium/Albuterol Neb [Duoneb] 3 ml IH Q6HR PRN 05/30/19 [History] Isosorbide DInitrate [Isosorbide Dinitrate] 30 mg PO BID 05/30/19 [History] Lisinopril [Zestril] 5 mg PO DAILY 05/30/19 [History] Metoprolol Succinate [Toprol Xl] 25 mg PO DAILY 05/30/19 [History] Nitroglycerin [Nitrostat] 0.4 mg SL Q5M PRN MDD 3 tabs/15mins 05/30/19 [History] Ondansetron ODT [Zofran ODT] 4 mg PO TID PRN 05/30/19 [History] Rosuvastatin [Crestor] 40 mg PO HS 05/30/19 [History] Ticagrelor [Brilinta] 90 mg PO BID 05/30/19 [History] Tiotropium [place] [Spiriva Respimat] 2 spr IH DAILY 05/30/19 [History] clonazePAM [Clonazepam] 0.5 tab PO BID 05/30/19 [History] hydrOXYzine HCl [Hydroxyzine HCl] 50 mg PO BID PRN 05/30/19 [History] Nicotine Patch [Nicoderm] 14 mg TD DAILY #30 patch.td24 05/31/19 [Rx] Ranolazine [Ranexa] 1,000 mg PO BID #60 tab.er.12h 05/31/19 [Rx] Allergies/Adverse Reactions: Allergy/AdvReac Type Severity Reaction Status Date / Time Amoxicillin Allergy Difficulty Verified 05/30/19 22:35 Breathing Date of admission: 05/30/19 21:49 Primary care physician: Chace Rees MD Consults: 05/30/19 21:47 Consult to Cardiology [CONS] Stat Comment: Consulting Provider: Cardiology [facility] Reason for Consult: Chest pain with elevated troponin in the setting of CAD Call Completed: No - Constitutional Vitals: Temp Pulse Resp BP Pulse Ox 97.4 F L 55 16 122/75 97 05/31/19 06:16 05/31/19 06:16 05/31/19 07:52 05/31/19 06:16 05/31/19 07:52 General appearance: Present: cooperative, A&O X 3, no acute distress, answers questions appropriately Exam: Gen: Alert, awake, Oriented to time,place and person Chest: Diminished breath sounds B/L, No wheezing, No crackles, No rales Heart: S1S2+ RRR No murmurs Abd: Soft, NT, BS +, No organomegaly Ext: No edema, pulses are palpable, No calf tenderness Neuro : No acute focal neuro deficits noticed Skin: No rash. - Patient Status Disposition: Home, Self-Care Condition: Good Overall status at discharge: patient is back to baseline - Discharge Instructions Follow Up With: Chace Rees MD [Primary Care Provider] - 06/07/19 10:40 am Meet Ly DO [Partnered Physician] - Forms: ED Satisfaction Letter - Diet and Activity Activity: increase activity as tolerated Diet: low salt diet
--- NOTE | 2019-05-31 15:08 | Electrocardiograph Report ---
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
--- NOTE | 2019-06-05 11:38 | Electrocardiograph Report ---
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
--- NOTE | 2019-06-05 11:39 | Electrocardiograph Report ---
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
== END 2019-05-31 15:55 | disposition home or self-care (01) ==
LOC: EMEROOARM 18:04 → 3BNU 18:04
PROVIDERS: ADMIT Internal Medicine; ATTEND Internal Medicine

== ENCOUNTER 2019-09-20 00:32 | Observation (INO) ==
[2019-09-20] MEDS ORDERED: *HR* FentaNYL (PF) 100 MCG/2 ML VIAL IVP ONE (01:59)
[2019-09-20] MEDS ORDERED: Ondansetron 4 MG/2 ML VIAL IVP ONE (01:59)
[2019-09-20 02:04] LABS: Basophils # 0.1 K/mcL (0.0-0.2); Basophils % 0.6 %; Eosinophils % 0.2 %; Hematocrit 48.1 % (37.5-50.1); Hemoglobin 16.7 g/dL (12.9-16.9); Immature Granulocytes % 0.4 % (0-4); Lymphocytes # 2.5 K/mcL (0.6-4.6); Lymphocytes % 22.8 %; Mean Corpuscular HGB Conc 34.7 g/dL (31.6-35.5); Mean Corpuscular Hemoglobin 30.3 pg (28.0-33.3); Mean Corpuscular Volume 87.1 fL (83.0-100.0); Monocytes # 0.8 K/mcL (0.0-1.3); Monocytes % 7.6 %; Neutrophils # 7.5 K/mcL (1.6-8.9); Platelet Count 300 K/mcL (140-400); Red Blood Count 5.52 M/mcL (4.19-5.50); Red Cell Distribution Width 14.1 % (11.5-14.5); Segmented Neutrophils % 68.4 %
[2019-09-20 02:14] LABS: INR 1.1
[2019-09-20 02:17] LABS: Activated Partial Thrombo Time 28.7 Seconds (26.0-36.0)
[2019-09-20 02:25] LABS: BUN/Creatinine Ratio 5 (6-26); Blood Urea Nitrogen 5 mg/dL (6-20); Calcium 9.5 mg/dL (8.6-10.3); Carbon Dioxide 23 mEq/L (23-29); Chloride 104 mEq/L (98-107); Glucose 104 mg/dL (70-105); Osmolality,Calculated 284 (280-300); Potassium 3.6 mEq/L (3.5-5.1); Sodium 138 mEq/L (136-145); eGFR For African Americans > 60 (> 60); eGFR For Non-African Americans > 60 (> 60)
[2019-09-20 02:26] LABS: Troponin I < 0.03 ng/mL (< 0.04)
[2019-09-20] MEDS ORDERED: Ondansetron ODT 4 MG TAB.RAPDIS SL PRN (03:39)
[2019-09-20] MEDS ORDERED: Naloxone 0.4 MG/ML INJ IVP PRN (03:39)
[2019-09-20] MEDS ORDERED: Nitroglycerin 0.4 MG TAB.SUBL SL PRN (05:13)
[2019-09-20] MEDS ORDERED: Furosemide 40 MG TABLET PO PRN (05:13)
[2019-09-20] MEDS ORDERED: diazePAM 5 MG TABLET PO PRN (05:13)
[2019-09-20] MEDS ORDERED: Ipratropium/Albuterol Neb 3 ML IH PRN (05:13)
[2019-09-20] MEDS ORDERED: Fluticasone Propionate Nasal 50 MCG/SPRAY BOTTLE NS PRN (05:13)
[2019-09-20] MEDS ORDERED: Ondansetron ODT 4 MG TAB.RAPDIS PO PRN (05:13)
[2019-09-20] MEDS ORDERED: hydrOXYzine pamoate 25 MG CAPSULE PO PRN (05:13)
[2019-09-20] MEDS ORDERED: EVOLOCUMAB 140 MG SQ SCH (05:15)
[2019-09-20] MEDS: Morphine Sulfate 2 MG/ML SYRINGE IVP PRN ×3 (06:08→18:57)
[2019-09-20 06:12] LABS: Basophils # 0.1 K/mcL (0.0-0.2); Basophils % 0.5 %; Eosinophils % 0.2 %; Hematocrit 46.5 % (37.5-50.1); Hemoglobin 15.6 g/dL (12.9-16.9); INR 1.1; Immature Granulocytes % 0.2 % (0-4); Lymphocytes # 2.7 K/mcL (0.6-4.6); Lymphocytes % 26.4 %; Mean Corpuscular HGB Conc 33.5 g/dL (31.6-35.5); Mean Corpuscular Hemoglobin 30.5 pg (28.0-33.3); Mean Corpuscular Volume 90.8 fL (83.0-100.0); Mean Platelet Volume 9.2 fL (9.4-12.4); Monocytes # 0.8 K/mcL (0.0-1.3); Monocytes % 8.1 %; Neutrophils # 6.6 K/mcL (1.6-8.9); Platelet Count 269 K/mcL (140-400); Prothrombin Time 12.7 Seconds (9.4-12.1); Red Blood Count 5.12 M/mcL (4.19-5.50); Red Cell Distribution Width 14.1 % (11.5-14.5); Segmented Neutrophils % 64.6 %; White Blood Count 10.2 K/mcL (4.3-11.1)
[2019-09-20 06:40] LABS: BUN/Creatinine Ratio 7 (6-26); Blood Urea Nitrogen 6 mg/dL (6-20); Calcium 9.3 mg/dL (8.6-10.3); Carbon Dioxide 25 mEq/L (23-29); Chloride 102 mEq/L (98-107); Chol/HDL Ratio 6.9 (0-4.9); Glucose 99 mg/dL (70-105); Osmolality,Calculated 286 (280-300); Potassium 3.9 mEq/L (3.5-5.1); Sodium 139 mEq/L (136-145); eGFR For African Americans > 60 (> 60); eGFR For Non-African Americans > 60 (> 60)
[2019-09-20] MEDS: Ranolazine 500 MG TAB.ER.12H PO SCH ×2 (08:34→20:54)
[2019-09-20] MEDS: Famotidine 20 MG TABLET PO SCH ×2 (08:34→17:10)
[2019-09-20] MEDS: FLUoxetine 20 MG CAPSULE PO SCH (08:34)
[2019-09-20] MEDS: Folic Acid 1 MG TABLET PO SCH (08:34)
[2019-09-20] MEDS: Gabapentin 400 MG CAPSULE PO SCH ×3 (08:34→20:53)
[2019-09-20] MEDS: *HR* Ticagrelor 90 MG TABLET PO SCH ×2 (08:35→20:53)
[2019-09-20] MEDS: Aspirin Enteric Coated 81 MG Tablet PO SCH (08:35)
[2019-09-20] MEDS: Metoprolol XL (24 HR) Succ 25 MG TAB.ER.24H PO SCH (11:12)
[2019-09-20 22:40] LABS: Amphetamine Screen,Urine Negative ng/mL (Cutoff=1000); Barbiturate Screen,Urine Negative ng/mL (Cutoff=200); Benzodiazepines Screen,Urine Positive ng/mL (Cutoff=200); Cannabinoid Screen,Urine Negative ng/mL (Cutoff = 50); Cocaine Screen,Urine Negative ng/mL (Cutoff= 300); Opiate Screen,Urine Positive ng/mL (Cutoff=300); Phencyclidine Screen,Urine Negative ng/mL (Cutoff=25)
[2019-09-21] MEDS: Morphine Sulfate 2 MG/ML SYRINGE IVP PRN ×4 (00:55→16:58)
[2019-09-21 05:38] LABS: Basophils # 0.1 K/mcL (0.0-0.2); Basophils % 0.7 %; Hematocrit 45.1 % (37.5-50.1); Hemoglobin 14.6 g/dL (12.9-16.9); Immature Granulocytes % 0.1 % (0-4); Lymphocytes # 2.7 K/mcL (0.6-4.6); Lymphocytes % 32.3 %; Mean Corpuscular HGB Conc 32.4 g/dL (31.6-35.5); Mean Corpuscular Hemoglobin 29.6 pg (28.0-33.3); Mean Corpuscular Volume 91.5 fL (83.0-100.0); Mean Platelet Volume 9.2 fL (9.4-12.4); Monocytes # 0.8 K/mcL (0.0-1.3); Monocytes % 9.7 %; Neutrophils # 4.8 K/mcL (1.6-8.9); Platelet Count 233 K/mcL (140-400); Red Blood Count 4.93 M/mcL (4.19-5.50); Red Cell Distribution Width 14.3 % (11.5-14.5); Segmented Neutrophils % 57.2 %; White Blood Count 8.4 K/mcL (4.3-11.1)
[2019-09-21 05:56] LABS: BUN/Creatinine Ratio 9 (6-26); Blood Urea Nitrogen 10 mg/dL (6-20); Calcium 8.7 mg/dL (8.6-10.3); Carbon Dioxide 26 mEq/L (23-29); Chloride 104 mEq/L (98-107); Glucose 107 mg/dL (70-105); Osmolality,Calculated 284 (280-300); Potassium 3.6 mEq/L (3.5-5.1); Sodium 137 mEq/L (136-145); eGFR For African Americans > 60 (> 60); eGFR For Non-African Americans > 60 (> 60)
[2019-09-21] MEDS: Famotidine 20 MG TABLET PO SCH ×2 (06:11→16:24)
[2019-09-21] MEDS ORDERED: GI Cocktail 40 ML EACH PO ONE (09:51)
[2019-09-21] MEDS: Ranolazine 500 MG TAB.ER.12H PO SCH (09:56)
[2019-09-21] MEDS: FLUoxetine 20 MG CAPSULE PO SCH (09:56)
[2019-09-21] MEDS: Gabapentin 400 MG CAPSULE PO SCH ×2 (09:56→16:24)
[2019-09-21] MEDS: Folic Acid 1 MG TABLET PO SCH (09:56)
[2019-09-21] MEDS: *HR* Ticagrelor 90 MG TABLET PO SCH (09:56)
[2019-09-21] MEDS: Aspirin Enteric Coated 81 MG Tablet PO SCH (09:57)
[2019-09-21] MEDS: Metoprolol XL (24 HR) Succ 25 MG TAB.ER.24H PO SCH ×2 (09:57→16:25)
[2019-09-21 14:30] VITALS: BP 108/63
== END 2019-09-21 18:46 | disposition home or self-care (01) ==
LOC: EMEROOARM 00:32 → CDU 00:32 → 3BNU 15:12
PROVIDERS: ADMIT Internal Medicine; ATTEND Internal Medicine

== ENCOUNTER 2019-11-29 12:23 | Observation (INO) ==
[2019-11-29] MEDS ORDERED: Naloxone 0.4 MG/ML INJ IVP PRN (16:26)
[2019-11-29] MEDS ORDERED: Morphine Sulfate 2 MG/ML SYRINGE IVP ONE (16:50)
[2019-11-29] MEDS ORDERED: Nicotine 7 MG PATCH.TD24 TD SCH (17:00)
[2019-11-29] MEDS: *HR* Ticagrelor 90 MG TABLET PO SCH (21:36)
[2019-11-29] MEDS: Ondansetron 4 MG/2 ML VIAL IVP PRN (21:47)
[2019-11-30 02:49] LABS: Hematocrit 42.3 % (37.5-50.1); Hemoglobin 14.4 g/dL (12.9-16.9); Mean Corpuscular Volume 91.2 fL (83.0-100.0); Mean Platelet Volume 9.5 fL (9.4-12.4); Platelet Count 227 K/mcL (140-400); Red Blood Count 4.64 M/mcL (4.19-5.50); Red Cell Distribution Width 14.6 % (11.5-14.5); White Blood Count 9.3 K/mcL (4.3-11.1)
[2019-11-30 03:06] LABS: BUN/Creatinine Ratio 10 (6-26); Blood Urea Nitrogen 11 mg/dL (6-20); Calcium 8.6 mg/dL (8.6-10.3); Carbon Dioxide 25 mEq/L (23-29); Chloride 108 mEq/L (98-107); Glucose 92 mg/dL (70-105); Osmolality,Calculated 281 (280-300); Potassium 4.1 mEq/L (3.5-5.1); Sodium 136 mEq/L (136-145); eGFR For African Americans > 60 (> 60); eGFR For Non-African Americans > 60 (> 60)
[2019-11-30] MEDS: Ranolazine 500 MG TAB.ER.12H PO SCH ×2 (04:58→10:14)
[2019-11-30] MEDS: *HR* Ticagrelor 90 MG TABLET PO SCH (10:14)
[2019-11-30] MEDS: Ondansetron 4 MG/2 ML VIAL IVP PRN (10:21)
[2019-11-30 10:46] VITALS: BP 112/69
[2019-11-30] MEDS ORDERED: Aspirin Enteric Coated 81 MG Tablet PO SCH (11:00)
[2019-11-30] MEDS ORDERED: lisinopriL 5 MG TABLET PO SCH (11:00)
[2019-11-30] MEDS ORDERED: Ranolazine 500 MG TAB.ER.12H PO ONE (11:00)
[2019-11-30] MEDS ORDERED: diazePAM 2 MG TABLET PO PRN (11:44)
[2019-11-30] MEDS ORDERED: Gabapentin 400 MG CAPSULE PO SCH ×3 (15:00→21:00)
[2019-11-30] MEDS ORDERED: Ranolazine 500 MG TAB.ER.12H PO SCH (21:00)
[2019-12-01] MEDS ORDERED: FLUoxetine 20 MG CAPSULE PO SCH (09:00)
[2019-12-01] MEDS ORDERED: Folic Acid 1 MG TABLET PO SCH (09:00)
[2019-12-01] MEDS ORDERED: amLODIPine 5 MG TABLET PO SCH (09:00)
== END 2019-11-30 15:13 | disposition home or self-care (01) ==
LOC: 3BNU
PROVIDERS: ADMIT Family Medicine; ATTEND Internal Medicine

== ENCOUNTER 2020-04-21 14:53 | Observation (INO) ==
[2020-04-21] MEDS: Nitroglycerin 0.4 MG TAB.SUBL SL PRN ×2 (15:34→15:36)
[2020-04-21] MEDS ORDERED: Isovue-370 500 ML BOTTLE IVP ONE (15:40)
[2020-04-21 15:52] LABS: Basophils # 0.1 K/mcL (0.0-0.2); Basophils % 0.6 %; Hematocrit 46.3 % (37.5-50.1); Hemoglobin 15.2 g/dL (12.9-16.9); Immature Granulocytes % 0.2 % (0-4); Lymphocytes # 1.9 K/mcL (0.6-4.6); Lymphocytes % 21.7 %; Mean Corpuscular HGB Conc 32.8 g/dL (31.6-35.5); Mean Corpuscular Hemoglobin 30.2 pg (28.0-33.3); Mean Platelet Volume 9.6 fL (9.4-12.4); Monocytes # 0.7 K/mcL (0.0-1.3); Monocytes % 7.4 %; Neutrophils # 6.2 K/mcL (1.6-8.9); Platelet Count 304 K/mcL (140-400); Red Blood Count 5.03 M/mcL (4.19-5.50); Red Cell Distribution Width 13.9 % (11.5-14.5); Segmented Neutrophils % 70.1 %; White Blood Count 8.8 K/mcL (4.3-11.1)
[2020-04-21 16:04] LABS: Prothrombin Time 11.1 Seconds (9.4-12.1)
[2020-04-21 16:07] LABS: Activated Partial Thrombo Time 31.4 Seconds (26.0-36.0)
[2020-04-21 16:18] LABS: BUN/Creatinine Ratio 7 (6-26); Blood Urea Nitrogen 6 mg/dL (6-20); Calcium 8.9 mg/dL (8.6-10.3); Carbon Dioxide 23 mEq/L (23-29); Chloride 106 mEq/L (98-107); Glucose 125 mg/dL (70-105); Osmolality,Calculated 283 (280-300); Potassium 3.5 mEq/L (3.5-5.1); Sodium 137 mEq/L (136-145); Troponin I < 0.03 ng/mL (< 0.04); eGFR For African Americans > 60 (> 60); eGFR For Non-African Americans > 60 (> 60)
[2020-04-21] MEDS ORDERED: Ondansetron 4 MG/2 ML VIAL IVP ONE (17:10)
[2020-04-21] MEDS ORDERED: Morphine Sulfate 2 MG/ML SYRINGE IVP ONE (17:10)
[2020-04-21] MEDS ORDERED: Ondansetron 4 MG/2 ML VIAL IVP PRN (17:54)
[2020-04-21] MEDS ORDERED: Naloxone 0.4 MG/ML INJ IVP PRN (17:54)
[2020-04-21] MEDS ORDERED: Perflutren Lipid Microsphere 1.3 ML in 0.9 % Sodium Chloride 8.7 ML IVP PRN (18:16)
[2020-04-21] MEDS ORDERED: Ipratropium/Albuterol Neb 3 ML IH PRN (18:30)
[2020-04-21] MEDS ORDERED: 0.9 % Sodium Chloride 1,000 ML IVC SCH (18:30)
[2020-04-21 19:03] VITALS: BP 107/72
[2020-04-21] MEDS ORDERED: *HR* Ticagrelor 90 MG TABLET PO SCH (21:00)
[2020-04-22] MEDS ORDERED: *HR* Enoxaparin 40 MG/0.4 ML SYRINGE SQ SCH (06:00)
[2020-04-22] MEDS ORDERED: Aspirin Enteric Coated 81 MG Tablet PO SCH (09:00)
== END 2020-04-21 19:38 | disposition left against medical advice (07) ==
LOC: 3BNU 14:53 → EMEROOARM 14:53 → SUATTDRO 18:04 → 3BNU 18:35
PROVIDERS: ADMIT Family Medicine; ATTEND Internal Medicine